=== PATIENT | female | born 1980 | race Caucasian/White ===

== ENCOUNTER 2017-01-17 16:12 | Emergency (ER) | payer MEDICAID ==
[~2017-01-17] VITALS: Ht 157.5 cm; Wt 76.4 kg
[2017-01-17] MEDS ORDERED: METOCLOPRAMIDE HCL 10MG/2ML VIAL IV ONE (23:00)
[2017-01-17] MEDS ORDERED: KETOROLAC 30MG/ML VIAL IV ONE (23:00)
[2017-01-17] MEDS ORDERED: SODIUM CHLORIDE 0.9% 500 ML IV ONE (23:16)
[2017-01-17 23:40] LABS: EOSINOPHILS % 0.9 % (0.0-5.0); HEMATOCRIT. 39.4 % (36.0-48.0); HEMOGLOBIN. 13.3 g/dL (12.0-16.0); LYMPHOCYTES % 27.3 % (20.0-50.0); MEAN CORPUSCULAR HEMOGLOBIN 31.4 pg (28.0-32.0); MEAN CORPUSCULAR VOLUME 93.1 fL (81.0-99.0); MONOCYTES % 11.8 % (2.0-8.0); RED BLOOD CELL COUNT 4.24 mill/uL (4.2-5.4); RED CELL DISTRIBUTION WIDTH 15.2 % (11.6-14.6)
[2017-01-17 23:43] LABS: CHLORIDE 101 mEq/L (98-107)
[2017-01-17 23:53] LABS: CARBON DIOXIDE 26 mEq/L (21-32)
[2017-01-17 23:59] LABS: HCG SCREEN NEGATIVE
[2017-01-18 00:05] LABS: PLATELET 156 x1000/uL (130-400)
[2017-01-18 01:00] LABS: CLARITY URINE CLOUDY (CLEAR); COLOR URINE ORANGE (YELLOW); GLUCOSE URINE NEGATIVE (NEGATIVE); KETONES URINE 4+ (NEGATIVE); LEUKOCYTE ESTERASE URINE TRACE (NEGATIVE); NITRITE URINE NEGATIVE (NEGATIVE); OCCULT BLOOD URINE TRACE (NEGATIVE); PH URINE 5.5 (4.5-8.0); PROTEIN URINE 1+ (NEGATIVE); SPECIFIC GRAVITY URINE 1.034 (1.005-1.030)
[2017-01-18] MEDS ORDERED: HYDROCODONE/APAP 7.5/325MG 1 TAB TABLET PO ONE (02:45)
[2017-01-18 03:20] VITALS: BP 121/69
[2017-01-18] MEDS ORDERED: SODIUM CHLORIDE 0.9% 10ML VIAL ONE (13:50)
[2017-01-18] MEDS ORDERED: IOHEXOL-350 100 ML BOTTLE ONE (13:50)
== END 2017-01-18 03:20 | disposition home or self-care (01) ==
LOC: ER 16:12
DX: R51 Headache (principal); R11.2 Nausea with vomiting, unspecified; Z98.890 Other specified postprocedural states
CPT/HCPCS: 36415; 70496; 80053; 81001; 81025; 84703; 85025; 96361; 96374; 96375; 99285; A4216; J1885; J2765; Q9967; Z7610; J7030

== ENCOUNTER 2018-04-03 06:00 | Emergency (ER) | payer MEDICARE ==
[~2018-04-03] VITALS: Ht 157.5 cm; Wt 85.0 kg
[2018-04-03] MEDS ORDERED: LIDOCAINE HCL/PF 1% 10 MG/ML 5ML VIAL IJ ONE (07:15)
[2018-04-03 08:18] VITALS: BP 126/85
== END 2018-04-03 08:56 | disposition home or self-care (01) ==
LOC: ER 08:51
DX: S01.511A Laceration without foreign body of lip, initial encounter (principal); Z87.891 Personal history of nicotine dependence; Y00.XXXA Assault by blunt object, initial encounter; Y93.89 Activity, other specified; Y92.018 Other place in single-family (private) house as the place of occurrence of the external cause
CPT/HCPCS: 12011; 99283; J3490; X7700

== ENCOUNTER 2019-10-17 12:25 | Inpatient (IN) | payer MEDICARE ==
[~2019-10-17] VITALS: Ht 165.1 cm; Wt 78.7 kg
[2019-10-17] MEDS ORDERED: OMEP20CA14 PO (12:40)
[2019-10-17] MEDS ORDERED: KETOROLAC 30MG/ML VIAL IV STA (13:35)
[2019-10-17] MEDS ORDERED: SODIUM CHLORIDE 0.9% 1,000 ML IV ONE (13:35)
[2019-10-17] MEDS ORDERED: FAMOTIDINE 20MG/2ML VIAL IV STA (13:35)
[2019-10-17] MEDS ORDERED: ONDANSETRON HCL 4MG/2ML INJ IV STA (13:35)
[2019-10-17] MEDS ORDERED: MORPHINE SULFATE 2 MG/ML CPJ (NOT FOR IM USE) IV ONE (13:45)
[2019-10-17 14:42] LABS: BASOPHILS % 1.2 % (0.0-2.0); EOSINOPHILS % 0.1 % (0.0-5.0); HEMATOCRIT. 41.8 % (36.0-48.0); HEMOGLOBIN. 14.2 g/dL (12.0-16.0); LYMPHOCYTES % 19.5 % (20.0-50.0); MEAN CORPUSCULAR HEMOGLOBIN 28.7 pg (28.0-32.0); MEAN CORPUSCULAR VOLUME 84.7 fL (81.0-99.0); MEAN PLATELET VOLUME 14.3 fl (7.4-10.4); MONOCYTES % 11.1 % (2.0-8.0); NEUTROPHILS % 68.1 % (40.0-76.0); PLATELET 157 x1000/uL (130-400); RED BLOOD CELL COUNT 4.93 mill/uL (4.2-5.4); RED CELL DISTRIBUTION WIDTH 14.7 % (11.6-14.6)
[2019-10-17 14:43] LABS: PROTHROMBIN TIME 10.9 sec (9.6-11.0)
[2019-10-17 14:45] LABS: CHLORIDE 103 mEq/L (98-107)
[2019-10-17 14:55] LABS: HCG SCREEN NEGATIVE
[2019-10-17] MEDS ORDERED: MAGNESIUM/ALUMINUM HYDROXIDE/SIMETHICONE 30ML UDC PO ONE (15:00)
[2019-10-17] MEDS ORDERED: IOHEXOL-300 100 ML BOTTLE ONE (15:44)
[2019-10-17 17:32] LABS: CLARITY URINE CLEAR (CLEAR); COLOR URINE YELLOW (YELLOW); KETONES URINE TRACE (NEGATIVE); LEUKOCYTE ESTERASE URINE NEGATIVE (NEGATIVE); NITRITE URINE NEGATIVE (NEGATIVE); OCCULT BLOOD URINE TRACE (NEGATIVE); PH URINE 7.5 (4.5-8.0); PROTEIN URINE 2+ (NEGATIVE); SPECIFIC GRAVITY URINE >1.040 (1.005-1.030); UROBILINOGEN URINE 0.2 E.U./dL (0.2-1.0)
[2019-10-17 17:48] LABS: *AMPHETAMINES SCREEN URINE NEGATIVE (NEGATIVE); *BARBITURATES SCREEN URINE NEGATIVE (NEGATIVE); *BENZODIAZEPINES SCREEN URINE NEGATIVE (NEGATIVE); *COCAINE SCREEN URINE NEGATIVE (NEGATIVE); METHADONE URINE SCREEN NEGATIVE (NEGATIVE)
[2019-10-17 17:49] LABS: PHENCYCLIDINE URINE SCREEN NEGATIVE (NEGATIVE)
[2019-10-17 17:53] LABS: CANNABINOID URINE SCREEN PRESUMTIVE POSITIVE (NEGATIVE); OPIATES URINE SCREEN PRESUMTIVE POSITIVE (NEGATIVE)
[2019-10-17] MEDS ORDERED: MORPHINE SULFATE 4 MG/ML CPJ (NOT FOR IM USE) IV ONE (19:30)
[2019-10-17 22:02] VITALS: BP 124/78
[2019-10-18] VITALS: BP 118/71
[2019-10-18] MEDS ORDERED: TEMAZEPAM 15MG CAPSULE PO PRN
[2019-10-18] MEDS: ONDANSETRON HCL 4MG/2ML INJ IV PRN ×4 (00:27→18:52)
[2019-10-18] MEDS: DEXT 5%/0.45% NACL KCL 20MEQ/L 1,000 ML IV SCH ×2 (01:11→11:47)
[2019-10-18] MEDS: LEVOFLOXACIN 500MG PREMIX 100 ML IV SCH (01:11)
[2019-10-18 04:00] VITALS: BP 118/70
[2019-10-18] MEDS: MORPHINE SULFATE 2 MG/ML CPJ (NOT FOR IM USE) IV PRN ×3 (06:00→19:00)
[2019-10-18 06:11] LABS: BASOPHILS % 1.3 % (0.0-2.0); EOSINOPHILS % 1.7 % (0.0-5.0); HEMATOCRIT. 35.1 % (36.0-48.0); HEMOGLOBIN. 11.8 g/dL (12.0-16.0); LYMPHOCYTES % 37.5 % (20.0-50.0); MEAN CORPUSCULAR HEMOGLOBIN 28.9 pg (28.0-32.0); MEAN CORPUSCULAR VOLUME 85.9 fL (81.0-99.0); MEAN PLATELET VOLUME 11.8 fl (7.4-10.4); MONOCYTES % 9.4 % (2.0-8.0); NEUTROPHILS % 50.1 % (40.0-76.0); PLATELET 129 x1000/uL (130-400); RED BLOOD CELL COUNT 4.09 mill/uL (4.2-5.4); RED CELL DISTRIBUTION WIDTH 14.6 % (11.6-14.6)
[2019-10-18 06:34] LABS: CHLORIDE 107 mEq/L (98-107)
[2019-10-18] MEDS: PANTOPRAZOLE SODIUM 40 MG/VIAL IV SCH (09:44)
[2019-10-18] MEDS ORDERED: POTASSIUM CHLORIDE 20MEQ TABLET SR PO SCH (11:00)
[2019-10-18] MEDS ORDERED: ACETAMINOPHEN 650MG SUPP PR PRN (14:45)
[2019-10-18] MEDS ORDERED: IPRATROPIUM/ALBUTEROL 0.5-3(2.5)MG/3ML NEB HHN PRN (14:45)
[2019-10-18] MEDS ORDERED: MAGNESIUM/ALUMINUM HYDROXIDE/SIMETHICONE 30ML UDC PO PRN (14:45)
[2019-10-18] MEDS ORDERED: DIPHENHYDRAMINE 50MG/ML VIAL IV PRN (14:45)
[2019-10-18] MEDS ORDERED: ACETAMINOPHEN 325MG TABLET PO PRN (14:45)
[2019-10-18] MEDS ORDERED: LACTULOSE 20G/30ML UDC PO PRN (14:45)
[2019-10-18] MEDS ORDERED: LORAZEPAM 2MG/ML CPJ IV PRN (14:45)
[2019-10-18 17:29] LABS: HEMATOCRIT 39.2 % (36.0-48.0)
[2019-10-18 17:38] LABS: T4 FREE 1.11 ng/dL (0.76-1.46)
[2019-10-18 20:00] VITALS: BP 116/70
[2019-10-18 21:54] LABS: HEMATOCRIT 34.8 % (36.0-48.0); HEMOGLOBIN 11.6 g/dL (12.0-16.0)
[2019-10-19] VITALS: BP 120/71
[2019-10-19] MEDS: LEVOFLOXACIN 500MG PREMIX 100 ML IV SCH (01:05)
[2019-10-19] MEDS: DEXT 5%/0.45% NACL KCL 20MEQ/L 1,000 ML IV SCH ×2 (01:46→08:00)
[2019-10-19 04:00] VITALS: BP 115/67
[2019-10-19 07:37] LABS: BASOPHILS % 0.8 % (0.0-2.0); EOSINOPHILS % 2.8 % (0.0-5.0); HEMATOCRIT. 35.9 % (36.0-48.0); HEMOGLOBIN. 11.8 g/dL (12.0-16.0); LYMPHOCYTES % 45.6 % (20.0-50.0); MEAN CORPUSCULAR HEMOGLOBIN 28.6 pg (28.0-32.0); MEAN PLATELET VOLUME 12.4 fl (7.4-10.4); MONOCYTES % 9.1 % (2.0-8.0); NEUTROPHILS % 41.7 % (40.0-76.0); PLATELET 130 x1000/uL (130-400); RED BLOOD CELL COUNT 4.13 mill/uL (4.2-5.4); RED CELL DISTRIBUTION WIDTH 14.4 % (11.6-14.6)
[2019-10-19 07:49] LABS: CHLORIDE 109 mEq/L (98-107)
[2019-10-19 08:00] VITALS: BP_SYST 112; BP_SYST 120; BP_DIAS 68; BP_DIAS 77
[2019-10-19] MEDS: PANTOPRAZOLE SODIUM 40 MG/VIAL IV SCH (08:08)
[2019-10-19 12:00] VITALS: BP 112/70
[2019-10-22 09:10] LABS: SACCHAROMYCES CEREVISIAE IGG <20.0 Units (0.0-24.9); SACCHAROMYCES CEREVISIAE IGM <20.0 Units (0.0-24.9)
[2019-10-22 14:09] LABS: ATYPICAL pANCA <1:20 titer (Neg:<1:20)
== END 2019-10-19 18:12 | disposition home or self-care (01) | DRG 249 ==
LOC: ER 12:25 → 6EST 19:21 → ENRESERV 21:37 → 6EST 23:00
PROVIDERS: ADMIT Internal Medicine; ATTEND Internal Medicine
DX: K52.9 Noninfective gastroenteritis and colitis, unspecified (principal); N28.1 Cyst of kidney, acquired; K21.9 Gastro-esophageal reflux disease without esophagitis; K57.30 Diverticulosis of large intestine without perforation or abscess without bleeding; E87.6 Hypokalemia; E66.9 Obesity, unspecified; D64.9 Anemia, unspecified; K92.1 Melena; K64.4 Residual hemorrhoidal skin tags; F12.90 Cannabis use, unspecified, uncomplicated
CPT/HCPCS: 36415; 71045; 74177; 76705; 80048; 80053; 80061; 80305; 81003; 82728; 83540; 83550; 84145; 84439; 84443; 84703; 85014; 85018; 85025; 85044; 86256; 86671; 99285; C9113; J1885; J1956; J2060; J2270; J2405; J3490; J7030; Q9967

== ENCOUNTER 2019-11-11 19:50 | Emergency (ER) | payer MEDICAID, MEDICARE ==
[~2019-11-11] VITALS: Ht 165.1 cm; Wt 73.0 kg
[~2019-11-11 19:50] MED LIST: OMEP20CA14 PO
[2019-11-11] MEDS ORDERED: ONDANSETRON HCL 4MG/2ML INJ IV STA (21:56)
[2019-11-11] MEDS ORDERED: ONDANSETRON HCL 4MG/2ML INJ ONE (22:01)
[2019-11-11] MEDS ORDERED: FAMOTIDINE 20MG/2ML VIAL IV STA (22:20)
[2019-11-11] MEDS ORDERED: MORPHINE SULFATE 4 MG/ML CPJ (NOT FOR IM USE) IV STA (22:20)
[2019-11-11] MEDS ORDERED: SODIUM CHLORIDE 0.9% 1,000 ML IV ONE (22:20)
[2019-11-11 22:29] LABS: BASOPHILS % 0.4 % (0.0-2.0); HEMATOCRIT. 39.2 % (36.0-48.0); HEMOGLOBIN. 13.1 g/dL (12.0-16.0); LYMPHOCYTES % 8.4 % (20.0-50.0); MEAN CORPUSCULAR HEMOGLOBIN 28.8 pg (28.0-32.0); MEAN CORPUSCULAR VOLUME 86.5 fL (81.0-99.0); MEAN PLATELET VOLUME 12.2 fl (7.4-10.4); MONOCYTES % 3.8 % (2.0-8.0); NEUTROPHILS % 87.4 % (40.0-76.0); PLATELET 134 x1000/uL (130-400); RED BLOOD CELL COUNT 4.53 mill/uL (4.2-5.4)
[2019-11-11 22:38] LABS: CHLORIDE 103 mEq/L (98-107)
[2019-11-11 22:44] LABS: HCG SCREEN NEGATIVE
[2019-11-11] MEDS ORDERED: HALOPERIDOL LACTATE 5MG/ML VIAL IM ONE (23:00)
[2019-11-11] MEDS ORDERED: MORPHINE SULFATE 4 MG/ML CPJ (NOT FOR IM USE) IV ONE (23:00)
[2019-11-12] MEDS ORDERED: METOCLOPRAMIDE HCL 10MG/2ML VIAL IV ONE (00:45)
[2019-11-12 04:50] VITALS: BP 133/78
== END 2019-11-12 05:16 | disposition short-term general hospital (02) ==
LOC: ER 19:50
DX: R10.13 Epigastric pain (principal); R11.2 Nausea with vomiting, unspecified
CPT/HCPCS: 36415; 74177; 80053; 83690; 84703; 85025; 96361; 96372; 96374; 96375; 96376; 99285; J1630; J2270; J2405; J2765; J3490; J7030

== ENCOUNTER 2020-06-16 08:57 | Emergency (ER) | payer MEDICAID, MEDICARE ==
[~2020-06-16] VITALS: Ht 160 cm; Wt 67.5 kg
[2020-06-16] MEDS ORDERED: FAMOTIDINE 20MG/2ML VIAL IV STA (09:37)
[2020-06-16] MEDS ORDERED: MAGNESIUM/ALUMINUM HYDROXIDE/SIMETHICONE 30ML UDC PO STA (09:37)
[2020-06-16] MEDS ORDERED: KETOROLAC 30MG/ML VIAL IV STA (09:37)
[2020-06-16] MEDS ORDERED: ONDANSETRON HCL 4MG/2ML INJ IV ONE ×2 (09:45→12:45)
[2020-06-16] MEDS ORDERED: SODIUM CHLORIDE 0.9% 1,000 ML IV ONE (09:45)
[2020-06-16 09:58] LABS: BASOPHILS % 0.3 % (0.0-2.0); EOSINOPHILS % 0.1 % (0.0-5.0); HEMOGLOBIN. 14.6 g/dL (12.0-16.0); LYMPHOCYTES % 8.8 % (20.0-50.0); MEAN CORPUSCULAR HEMOGLOBIN 29.4 pg (28.0-32.0); MEAN CORPUSCULAR VOLUME 88.3 fL (81.0-99.0); MONOCYTES % 5.1 % (2.0-8.0); NEUTROPHILS % 85.7 % (40.0-76.0); RED BLOOD CELL COUNT 4.98 mill/uL (4.2-5.4); RED CELL DISTRIBUTION WIDTH 14.5 % (11.6-14.6)
[2020-06-16 10:05] LABS: CHLORIDE 101 mEq/L (98-107)
[2020-06-16 10:10] LABS: ETHANOL BLOOD < 10 mg/dL
[2020-06-16 10:12] LABS: HCG SCREEN NEGATIVE
[2020-06-16 10:26] LABS: PLATELET 216 x1000/uL (130-400)
[2020-06-16 12:03] LABS: CLARITY URINE CLOUDY (CLEAR); COLOR URINE YELLOW (YELLOW); KETONES URINE 3+ (NEGATIVE); LEUKOCYTE ESTERASE URINE NEGATIVE (NEGATIVE); NITRITE URINE NEGATIVE (NEGATIVE); OCCULT BLOOD URINE TRACE (NEGATIVE); PROTEIN URINE 1+ (NEGATIVE); SPECIFIC GRAVITY URINE 1.039 (1.005-1.030); UROBILINOGEN URINE 0.2 E.U./dL (0.2-1.0)
[2020-06-16 12:17] LABS: METHADONE URINE SCREEN NEGATIVE (NEGATIVE)
[2020-06-16 12:18] LABS: *AMPHETAMINES SCREEN URINE NEGATIVE (NEGATIVE); *BARBITURATES SCREEN URINE NEGATIVE (NEGATIVE); *BENZODIAZEPINES SCREEN URINE NEGATIVE (NEGATIVE); *COCAINE SCREEN URINE NEGATIVE (NEGATIVE); OPIATES URINE SCREEN NEGATIVE (NEGATIVE); PHENCYCLIDINE URINE SCREEN NEGATIVE (NEGATIVE)
[2020-06-16 12:24] LABS: CANNABINOID URINE SCREEN PRESUMTIVE POSITIVE (NEGATIVE)
[2020-06-16] MEDS ORDERED: CEFTRIAXONE 1 G PREMIX 50 ML IV ONE (12:30)
[2020-06-16] MEDS ORDERED: KETOROLAC 15MG/ML VIAL IV ONE (12:45)
[2020-06-16] MEDS ORDERED: ONDANSETRON HCL 4MG/2ML INJ IV STA (14:08)
[2020-06-16] MEDS ORDERED: MORPHINE SULFATE 4 MG/ML CPJ (NOT FOR IM USE) IV STA (14:08)
[2020-06-16 18:02] VITALS: BP 102/51
== END 2020-06-16 19:56 | disposition short-term general hospital (02) ==
LOC: ER 09:07 → CANBEDREQ 06-17 20:34
DX: N39.0 Urinary tract infection, site not specified (principal); F12.188 Cannabis abuse with other cannabis-induced disorder; K21.9 Gastro-esophageal reflux disease without esophagitis
CPT/HCPCS: 36415; 71045; 74176; 76705; 80053; 80305; 80320; 81003; 81025; 83690; 84703; 85025; 93005; 96361; 96365; 96375; 96376; 99285; J0696; J1885; J2270; J2405; J3490; J7030; G0480

== ENCOUNTER 2020-07-26 22:38 | Emergency (ER) | payer MEDICAID ==
[~2020-07-26] VITALS: Ht 167.6 cm; Wt 59.0 kg
[2020-07-26 23:03] VITALS: BP 134/70
[2020-07-26] MEDS ORDERED: VISCOUS LIDOCAINE 2% 15 ML UDC MM STA (23:56)
[2020-07-27] MEDS ORDERED: HALOPERIDOL LACTATE 5MG/ML VIAL IM ONE
[2020-07-27] MEDS ORDERED: ONDANSETRON 4MG ODT PO ONE
[2020-07-27] MEDS ORDERED: MAGNESIUM/ALUMINUM HYDROXIDE/SIMETHICONE 30ML UDC PO ONE
== END 2020-07-27 00:39 | disposition home or self-care (01) ==
LOC: ER 22:38
DX: R11.15 Cyclical vomiting syndrome unrelated to migraine (principal); F12.10 Cannabis abuse, uncomplicated; Z98.890 Other specified postprocedural states
CPT/HCPCS: 96372; 99283; J1630; Q0162

== ENCOUNTER 2020-07-30 02:55 | Emergency (ER) | payer MEDICAID ==
[~2020-07-30] VITALS: Ht 160 cm; Wt 64.0 kg
[2020-07-30] MEDS ORDERED: ONDANSETRON HCL 4MG/2ML INJ IV STA (08:29)
[2020-07-30] MEDS ORDERED: SODIUM CHLORIDE 0.9% 1,000 ML IV ONE (08:30)
[2020-07-30] MEDS ORDERED: MORPHINE SULFATE 4 MG/ML CPJ (NOT FOR IM USE) IV ONE ×2 (08:45→12:15)
[2020-07-30 08:49] LABS: BASOPHILS % 1.1 % (0.0-2.0); HEMATOCRIT. 38.1 % (36.0-48.0); HEMOGLOBIN. 12.5 g/dL (12.0-16.0); LYMPHOCYTES % 7.3 % (20.0-50.0); MEAN CORPUSCULAR HEMOGLOBIN 28.4 pg (28.0-32.0); MEAN CORPUSCULAR VOLUME 86.2 fL (81.0-99.0); MEAN PLATELET VOLUME 12.1 fl (7.4-10.4); MONOCYTES % 3.5 % (2.0-8.0); NEUTROPHILS % 88.1 % (40.0-76.0); PLATELET 174 x1000/uL (130-400); RED BLOOD CELL COUNT 4.41 mill/uL (4.2-5.4); RED CELL DISTRIBUTION WIDTH 14.7 % (11.6-14.6)
[2020-07-30 08:55] LABS: CHLORIDE 102 mEq/L (98-107)
[2020-07-30 08:59] LABS: PROTHROMBIN TIME 10.6 sec (9.6-11.0)
[2020-07-30 09:26] LABS: HCG SCREEN NEGATIVE
[2020-07-30] MEDS ORDERED: ACETAMINOPHEN 325MG TABLET PO ONE (10:15)
[2020-07-30] MEDS ORDERED: POTASSIUM CHLORIDE 10MEQ TABLET SR PO ONE (10:30)
[2020-07-30 12:34] LABS: CLARITY URINE CLOUDY (CLEAR); COLOR URINE YELLOW (YELLOW); KETONES URINE 3+ (NEGATIVE); LEUKOCYTE ESTERASE URINE NEGATIVE (NEGATIVE); NITRITE URINE NEGATIVE (NEGATIVE); OCCULT BLOOD URINE 2+ (NEGATIVE); PH URINE 6.5 (4.5-8.0); PROTEIN URINE 1+ (NEGATIVE); SPECIFIC GRAVITY URINE 1.032 (1.005-1.030)
[2020-07-30 13:07] LABS: *AMPHETAMINES SCREEN URINE NEGATIVE (NEGATIVE); *BARBITURATES SCREEN URINE NEGATIVE (NEGATIVE)
[2020-07-30 13:08] LABS: *BENZODIAZEPINES SCREEN URINE NEGATIVE (NEGATIVE); *COCAINE SCREEN URINE NEGATIVE (NEGATIVE); METHADONE URINE SCREEN NEGATIVE (NEGATIVE); OPIATES URINE SCREEN NEGATIVE (NEGATIVE); PHENCYCLIDINE URINE SCREEN NEGATIVE (NEGATIVE)
[2020-07-30 13:55] LABS: CANNABINOID URINE SCREEN PRESUMTIVE POSITIVE (NEGATIVE)
[2020-07-30] MEDS ORDERED: ONDANSETRON HCL 4MG/2ML INJ IV NR (14:34)
[2020-07-30] MEDS ORDERED: VISCOUS LIDOCAINE 2% 15 ML UDC MM PRN (16:15)
[2020-07-30] MEDS ORDERED: MAGNESIUM/ALUMINUM HYDROXIDE/SIMETHICONE 30ML UDC PO ONE (16:15)
[2020-07-30] MEDS ORDERED: DICYCLOMINE HCL 10MG CAPSULE PO ONE (16:30)
[2020-07-30 17:12] VITALS: BP 130/86
== END 2020-07-30 17:15 | disposition home or self-care (01) ==
LOC: ER 02:55
DX: R10.2 Pelvic and perineal pain (principal); G89.29 Other chronic pain; R11.15 Cyclical vomiting syndrome unrelated to migraine; F12.10 Cannabis abuse, uncomplicated
CPT/HCPCS: 36415; 76830; 76856; 80053; 80305; 81003; 83605; 83690; 84703; 85025; 85610; 87086; 96361; 96374; 99284; J2270; J2405; J7030; Z7610

== ENCOUNTER 2020-08-24 23:03 | Emergency (ER) | payer MEDICAID, OTHER ==
[~2020-08-24] VITALS: Ht 160 cm; Wt 64.0 kg
[2020-08-24 23:51] VITALS: BP 144/84
[2020-08-24] MEDS ORDERED: MAGNESIUM/ALUMINUM HYDROXIDE/SIMETHICONE 30ML UDC PO STA (23:54)
[2020-08-24] MEDS ORDERED: ONDANSETRON 4MG ODT PO STA (23:54)
[2020-08-25] MEDS ORDERED: VISCOUS LIDOCAINE 2% 15 ML UDC MM ONE
== END 2020-08-25 01:08 | disposition home or self-care (01) ==
LOC: ER 23:03
DX: R11.15 Cyclical vomiting syndrome unrelated to migraine (principal); F17.210 Nicotine dependence, cigarettes, uncomplicated
CPT/HCPCS: 81025; 93005; 99284; Q0162

== ENCOUNTER 2020-11-04 13:22 | Emergency (ER) | payer MEDICAID, OTHER ==
[~2020-11-04] VITALS: Ht 160 cm; Wt 70.0 kg
[2020-11-04] MEDS ORDERED: IBUPROFEN 600MG TABLET PO ONE (14:00)
[2020-11-04] MEDS ORDERED: IBUP-2029 MT (14:55)
[2020-11-04 15:18] VITALS: BP 144/97
== END 2020-11-04 15:20 | disposition home or self-care (01) ==
LOC: ER 13:22
DX: S90.32XA Contusion of left foot, initial encounter (principal); V09.9XXA Pedestrian injured in unspecified transport accident, initial encounter; Y93.89 Activity, other specified; Y92.89 Other specified places as the place of occurrence of the external cause; Y99.8 Other external cause status
CPT/HCPCS: 73630; 99283

== ENCOUNTER 2020-12-10 07:08 | Inpatient (IN) | payer MEDICAID, OTHER ==
[~2020-12-10] VITALS: Ht 160 cm; Wt 69.4 kg
[~2020-12-10 07:08] MED LIST changes: +IBUP-2029 MT
[2020-12-10] MEDS ORDERED: DICYCLOMINE 10 MG/5 ML ORAL SYR PO STA (07:38)
[2020-12-10] MEDS ORDERED: VISCOUS LIDOCAINE 2% 15 ML UDC PO STA (07:38)
[2020-12-10] MEDS ORDERED: ONDANSETRON HCL 4MG/2ML INJ IV STA (07:38)
[2020-12-10] MEDS ORDERED: MAGNESIUM/ALUMINUM HYDROXIDE/SIMETHICONE 30ML UDC PO STA (07:38)
[2020-12-10] MEDS ORDERED: MORPHINE SULFATE 4 MG/ML CPJ (NOT FOR IM USE) IV STA (07:38)
[2020-12-10] MEDS ORDERED: SODIUM CHLORIDE 0.9% 1,000 ML IV ONE (07:45)
[2020-12-10 07:50] LABS: HEMATOCRIT. 35.5 % (36.0-48.0); HEMOGLOBIN. 11.7 g/dL (12.0-16.0); MEAN CORPUSCULAR HEMOGLOBIN 27.6 pg (28.0-32.0); MEAN CORPUSCULAR VOLUME 83.5 fL (81.0-99.0); PLATELET 147 x1000/uL (130-400); RED BLOOD CELL COUNT 4.25 mill/uL (4.2-5.4); RED CELL DISTRIBUTION WIDTH 15.8 % (11.6-14.6)
[2020-12-10 07:58] LABS: CHLORIDE 106 mEq/L (98-107)
[2020-12-10 08:02] LABS: PROTHROMBIN TIME 10.5 sec (9.6-11.0)
[2020-12-10 08:03] LABS: HCG SCREEN NEGATIVE
[2020-12-10 10:07] LABS: PLATELET ESTIMATE NORMAL
[2020-12-10] MEDS ORDERED: ONDANSETRON HCL 4MG/2ML INJ IV ONE (10:15)
[2020-12-10] MEDS ORDERED: MORPHINE SULFATE 4 MG/ML CPJ (NOT FOR IM USE) IV ONE (10:15)
[2020-12-10 11:26] LABS: CLARITY URINE CLEAR (CLEAR); COLOR URINE YELLOW (YELLOW); KETONES URINE TRACE (NEGATIVE); LEUKOCYTE ESTERASE URINE NEGATIVE (NEGATIVE); NITRITE URINE NEGATIVE (NEGATIVE); OCCULT BLOOD URINE NEGATIVE (NEGATIVE); PROTEIN URINE NEGATIVE (NEGATIVE); SPECIFIC GRAVITY URINE 1.027 (1.005-1.030); UROBILINOGEN URINE 0.2 E.U./dL (0.2-1.0)
[2020-12-10] MEDS: MORPHINE SULFATE 2 MG/ML CPJ (NOT FOR IM USE) IV PRN ×2 (13:20→22:27)
[2020-12-10 15:00] VITALS: BP 116/76
[2020-12-10] MEDS ORDERED: DIPH25TA23 MT (16:19)
[2020-12-10] MEDS ORDERED: OMEP40CA12 PO (16:19)
[2020-12-10] MEDS ORDERED: ABIL10 PO (16:19)
[2020-12-10] MEDS ORDERED: CITA20TA19 MT (16:19)
[2020-12-10] MEDS ORDERED: AMIT10TA6 PO (16:19)
[2020-12-10] MEDS ORDERED: ONDA4TAB5 PO (16:19)
[2020-12-10] MEDS ORDERED: BENJ IM (16:19)
[2020-12-10] MEDS ORDERED: ACETAMINOPHEN 325MG TABLET PO PRN (17:30)
[2020-12-10] MEDS ORDERED: IPRATROPIUM/ALBUTEROL 0.5-3(2.5)MG/3ML NEB HHN PRN (17:30)
[2020-12-10] MEDS ORDERED: DOCUSATE SODIUM 100MG CAPSULE PO PRN (17:30)
[2020-12-10] MEDS ORDERED: CLONIDINE 0.1MG TABLET PO PRN (17:30)
[2020-12-10] MEDS: SODIUM CHLORIDE 0.9% 1,000 ML IV SCH (17:30)
[2020-12-10] MEDS ORDERED: MAGNESIUM/ALUMINUM HYDROXIDE/SIMETHICONE 30ML UDC PO PRN (17:30)
[2020-12-10] MEDS ORDERED: DICYCLOMINE HCL 10MG/ML 2ML AMP IM SCH (18:00)
[2020-12-10] MEDS: PANTOPRAZOLE SODIUM 40 MG/VIAL IV SCH (18:15)
[2020-12-10 19:43] LABS: PHENCYCLIDINE URINE SCREEN NEGATIVE (NEGATIVE)
[2020-12-10 19:44] LABS: *AMPHETAMINES SCREEN URINE NEGATIVE (NEGATIVE); *BARBITURATES SCREEN URINE NEGATIVE (NEGATIVE); *BENZODIAZEPINES SCREEN URINE NEGATIVE (NEGATIVE); *COCAINE SCREEN URINE NEGATIVE (NEGATIVE); METHADONE URINE SCREEN NEGATIVE (NEGATIVE)
[2020-12-10 19:48] LABS: CANNABINOID URINE SCREEN PRESUMTIVE POSITIVE (NEGATIVE); OPIATES URINE SCREEN PRESUMTIVE POSITIVE (NEGATIVE)
[2020-12-10 20:00] VITALS: BP 114/52
[2020-12-10] MEDS: AMITRIPTYLINE 10MG TABLET PO SCH ×2 (21:37→21:54)
[2020-12-10] MEDS: PROCHLORPERAZINE 10MG/2ML VIAL IV PRN (21:45)
[2020-12-10] MEDS: ENOXAPARIN 40MG/0.4ML SYR SUBCUT SCH (21:45)
[2020-12-11] VITALS: BP 105/58
[2020-12-11 04:00] VITALS: BP 127/77
[2020-12-11] MEDS: MORPHINE SULFATE 2 MG/ML CPJ (NOT FOR IM USE) IV PRN ×3 (04:42→22:40)
[2020-12-11] MEDS: PROCHLORPERAZINE 10MG/2ML VIAL IV PRN (05:15)
[2020-12-11 07:15] LABS: BASOPHILS % 1.1 % (0.0-2.0); EOSINOPHILS % 1.4 % (0.0-5.0); HEMATOCRIT. 36.1 % (36.0-48.0); HEMOGLOBIN. 11.8 g/dL (12.0-16.0); LYMPHOCYTES % 45.5 % (20.0-50.0); MEAN CORPUSCULAR HEMOGLOBIN 27.4 pg (28.0-32.0); MEAN CORPUSCULAR VOLUME 83.8 fL (81.0-99.0); MONOCYTES % 8.8 % (2.0-8.0); NEUTROPHILS % 43.2 % (40.0-76.0); PLATELET 120 x1000/uL (130-400); RED CELL DISTRIBUTION WIDTH 16.2 % (11.6-14.6)
[2020-12-11 07:23] LABS: CHLORIDE 109 mEq/L (98-107)
[2020-12-11 07:31] LABS: PHOSPHORUS 2.3 mg/dL (2.5-4.9)
[2020-12-11 08:00] VITALS: BP 137/74
[2020-12-11] MEDS: ARIPIPRAZOLE 5MG TABLET PO SCH (09:39)
[2020-12-11] MEDS: PANTOPRAZOLE SODIUM 40 MG/VIAL IV SCH (09:39)
[2020-12-11] MEDS: SODIUM CHLORIDE 0.9% 1,000 ML IV SCH (09:49)
[2020-12-11] MEDS: CITALOPRAM HYDROBROMIDE 10MG TABLET PO SCH (09:49)
[2020-12-11] MEDS: POTASSIUM CHLORIDE INJ 40 MEQ in DEXT 5% WATER 500 ML IV NR ×3 (10:47→22:22)
[2020-12-11 12:00] VITALS: BP 128/82
[2020-12-11] MEDS ORDERED: DICYCLOMINE HCL 10MG/ML 2ML AMP IM NR (15:00)
[2020-12-11 16:00] VITALS: BP 144/80
[2020-12-11 20:00] VITALS: BP 147/84
[2020-12-11] MEDS ORDERED: POTASSIUM CHLORIDE INJ 40 MEQ in DEXT 5% WATER 500 ML IV SCH (20:00)
[2020-12-11] MEDS: ENOXAPARIN 40MG/0.4ML SYR SUBCUT SCH (22:23)
[2020-12-11] MEDS: ONDANSETRON HCL 4MG/2ML INJ IV PRN (22:27)
[2020-12-12] VITALS: BP 107/55
[2020-12-12] MEDS: SODIUM CHLORIDE 0.9% 1,000 ML IV SCH ×2 (03:58→21:00)
[2020-12-12] MEDS: MORPHINE SULFATE 2 MG/ML CPJ (NOT FOR IM USE) IV PRN ×3 (03:59→17:17)
[2020-12-12 04:00] VITALS: BP 144/81
[2020-12-12] MEDS: ONDANSETRON HCL 4MG/2ML INJ IV PRN ×3 (04:07→17:17)
[2020-12-12 06:04] LABS: CHLORIDE 103 mEq/L (98-107)
[2020-12-12 06:15] LABS: BASOPHILS % 0.8 % (0.0-2.0); EOSINOPHILS % 0.1 % (0.0-5.0); HEMATOCRIT. 36.1 % (36.0-48.0); LYMPHOCYTES % 25.5 % (20.0-50.0); MEAN CORPUSCULAR HEMOGLOBIN 27.7 pg (28.0-32.0); MEAN CORPUSCULAR VOLUME 83.2 fL (81.0-99.0); MEAN PLATELET VOLUME 13.4 fl (7.4-10.4); MONOCYTES % 8.4 % (2.0-8.0); NEUTROPHILS % 65.2 % (40.0-76.0); PLATELET 122 x1000/uL (130-400); RED BLOOD CELL COUNT 4.34 mill/uL (4.2-5.4); RED CELL DISTRIBUTION WIDTH 15.8 % (11.6-14.6)
[2020-12-12 08:00] VITALS: BP 141/82
[2020-12-12] MEDS: CITALOPRAM HYDROBROMIDE 10MG TABLET PO SCH (08:50)
[2020-12-12] MEDS: ARIPIPRAZOLE 5MG TABLET PO SCH (08:51)
[2020-12-12] MEDS: PANTOPRAZOLE SODIUM 40 MG/VIAL IV SCH (10:03)
[2020-12-12 12:00] VITALS: BP 116/71
[2020-12-12 16:00] VITALS: BP 154/89
[2020-12-12] MEDS: SUCRALFATE 1G TABLET PO SCH ×2 (18:12→20:59)
[2020-12-12 20:00] VITALS: BP 134/83
[2020-12-12] MEDS: ENOXAPARIN 40MG/0.4ML SYR SUBCUT SCH (20:58)
[2020-12-12] MEDS: AMITRIPTYLINE 10MG TABLET PO SCH (20:59)
[2020-12-12] MEDS: HYDROCODONE/ACETAMINOPHEN 10/325MG TABLET PO PRN (20:59)
[2020-12-12] MEDS: PROCHLORPERAZINE 10MG/2ML VIAL IV PRN (21:51)
[2020-12-13] VITALS: BP 102/54
[2020-12-13 04:00] VITALS: BP 130/85
[2020-12-13] MEDS: ONDANSETRON HCL 4MG/2ML INJ IV PRN (06:09)
[2020-12-13] MEDS: SUCRALFATE 1G TABLET PO SCH ×2 (06:26→11:18)
[2020-12-13 07:16] LABS: BASOPHILS % 0.6 % (0.0-2.0); CHLORIDE 101 mEq/L (98-107); EOSINOPHILS % 0.5 % (0.0-5.0); HEMOGLOBIN. 12.5 g/dL (12.0-16.0); LYMPHOCYTES % 19.9 % (20.0-50.0); MEAN CORPUSCULAR HEMOGLOBIN 28.2 pg (28.0-32.0); MEAN CORPUSCULAR VOLUME 83.3 fL (81.0-99.0); MEAN PLATELET VOLUME 12.2 fl (7.4-10.4); MONOCYTES % 9.9 % (2.0-8.0); NEUTROPHILS % 69.1 % (40.0-76.0); PLATELET 118 x1000/uL (130-400); RED BLOOD CELL COUNT 4.44 mill/uL (4.2-5.4)
[2020-12-13 08:00] VITALS: BP 148/84
[2020-12-13] MEDS: PANTOPRAZOLE SODIUM 40 MG/VIAL IV SCH (09:18)
[2020-12-13] MEDS: CITALOPRAM HYDROBROMIDE 10MG TABLET PO SCH (09:19)
[2020-12-13] MEDS: ARIPIPRAZOLE 5MG TABLET PO SCH (09:19)
[2020-12-13] MEDS: PROCHLORPERAZINE 10MG/2ML VIAL IV PRN (10:00)
[2020-12-13] MEDS: HYDROCODONE/ACETAMINOPHEN 10/325MG TABLET PO PRN (10:00)
[2020-12-13] MEDS ORDERED: POTASSIUM CHLORIDE 20MEQ/PACKET PO NR ×2 (11:00→14:00)
[2020-12-13 12:00] VITALS: BP 143/68
[2020-12-13] MEDS: SODIUM CHLORIDE 0.9% 1,000 ML IV SCH (12:10)
[2020-12-13 15:30] VITALS: BP 143/68
== END 2020-12-13 16:00 | disposition home or self-care (01) | DRG 244 ==
LOC: ER 07:08 → 6EST 11:17 → ENRESERV 13:12
PROVIDERS: ADMIT Internal Medicine; ATTEND Internal Medicine
DX: K57.90 Diverticulosis of intestine, part unspecified, without perforation or abscess without bleeding (principal); D64.9 Anemia, unspecified; R73.9 Hyperglycemia, unspecified
CPT/HCPCS: 36415; 74176; 80048; 80053; 80076; 80305; 81003; 83735; 84100; 84703; 85025; 93005; 93970; 99285; C9113; J0500; J0780; J1650; J2270; J2405; J3480; J7030; J7060

== ENCOUNTER 2020-12-14 05:08 | Emergency (ER) | payer MEDICAID ==
[~2020-12-14] VITALS: Ht 160 cm; Wt 70.0 kg
[~2020-12-14 05:08] MED LIST changes: +ABIL10 PO; +AMIT10TA6 PO; +BENJ IM; +CITA20TA19 MT; +DIPH25TA23 MT; -OMEP20CA14 PO; +OMEP40CA12 PO; +ONDA4TAB5 PO
[2020-12-14 05:22] VITALS: BP 173/121
== END 2020-12-14 08:24 | disposition left against medical advice (07) ==
LOC: ER 05:08
DX: R10.9 Unspecified abdominal pain (principal); R11.2 Nausea with vomiting, unspecified; Z53.21 Procedure and treatment not carried out due to patient leaving prior to being seen by health care provider
CPT/HCPCS: 93005; 99283

== ENCOUNTER 2021-07-05 09:35 | Emergency (ER) | payer MEDICAID ==
[~2021-07-05] VITALS: Ht 160 cm; Wt 70.0 kg
[~2021-07-05 09:35] MED LIST changes: -OMEP40CA12 PO; +OMEP40CA20 PO
[2021-07-05] MEDS ORDERED: VISCOUS LIDOCAINE 2% 15 ML UDC PO STA (10:40)
[2021-07-05] MEDS ORDERED: ONDANSETRON HCL 4MG/2ML INJ IV STA (10:40)
[2021-07-05] MEDS ORDERED: KETOROLAC 30MG/ML VIAL IV STA (10:40)
[2021-07-05] MEDS ORDERED: MAGNESIUM/ALUMINUM HYDROXIDE/SIMETHICONE 30ML UDC PO STA (10:40)
[2021-07-05] MEDS ORDERED: DICYCLOMINE 10 MG/5 ML ORAL SYR PO STA (10:40)
[2021-07-05] MEDS ORDERED: SODIUM CHLORIDE 0.9% 1,000 ML IV ONE (10:45)
[2021-07-05 10:46] LABS: BASOPHILS % 0.3 % (0.0-2.0); EOSINOPHILS % 0.2 % (0.0-5.0); HEMOGLOBIN. 8.6 g/dL (12.0-16.0); LYMPHOCYTES % 8.3 % (20.0-50.0); MEAN CORPUSCULAR HEMOGLOBIN 22.4 pg (28.0-32.0); MEAN CORPUSCULAR VOLUME 70.5 fL (81.0-99.0); MEAN PLATELET VOLUME 10.5 fl (7.4-10.4); MONOCYTES % 3.3 % (2.0-8.0); NEUTROPHILS % 87.9 % (40.0-76.0); PLATELET 229 x1000/uL (130-400); RED BLOOD CELL COUNT 3.83 mill/uL (4.2-5.4); RED CELL DISTRIBUTION WIDTH 22.8 % (11.6-14.6)
[2021-07-05 10:58] LABS: CHLORIDE 106 mEq/L (98-107)
[2021-07-05 11:02] LABS: ETHANOL BLOOD < 10 mg/dL
[2021-07-05 11:06] LABS: HCG SCREEN NEGATIVE
[2021-07-05 12:13] LABS: PLATELET ESTIMATE NORMAL
[2021-07-05] MEDS ORDERED: METOCLOPRAMIDE HCL 10MG/2ML VIAL IV ONE (12:45)
[2021-07-05] MEDS ORDERED: LORAZEPAM 2MG/ML CPJ IV ONE (12:45)
[2021-07-05] MEDS ORDERED: ONDANSETRON HCL 4MG/2ML INJ IV ONE (14:15)
[2021-07-05] MEDS ORDERED: OMEP40CA20 MT (14:15)
[2021-07-05] MEDS ORDERED: ONDA4TAB5 MT (14:15)
[2021-07-05 16:21] VITALS: BP 130/70
== END 2021-07-05 16:22 | disposition home or self-care (01) ==
LOC: ER 09:35
DX: R10.33 Periumbilical pain (principal); R11.2 Nausea with vomiting, unspecified; Z79.899 Other long term (current) drug therapy
CPT/HCPCS: 36415; 74176; 80053; 80320; 83690; 84703; 85025; 93005; 96361; 96374; 96375; 96376; 99285; J1885; J2060; J2405; J2765; J7030; G0480

== ENCOUNTER 2021-07-07 09:03 | Inpatient (IN) | payer MEDICAID ==
[~2021-07-07] VITALS: Ht 152.4 cm; Wt 68.0 kg
[~2021-07-07 09:03] MED LIST changes: +OMEP40CA20 MT; +ONDA4TAB5 MT
[2021-07-07] MEDS ORDERED: ONDANSETRON HCL 4MG/2ML INJ IV STA (09:22)
[2021-07-07] MEDS ORDERED: MORPHINE SULFATE 4 MG/ML CPJ (NOT FOR IM USE) IV STA (09:22)
[2021-07-07] MEDS ORDERED: SODIUM CHLORIDE 0.9% 1,000 ML IV ONE ×2 (09:30→14:00)
[2021-07-07 10:30] LABS: BASOPHILS % 1.3 % (0.0-2.0); HEMATOCRIT. 27.8 % (36.0-48.0); HEMOGLOBIN. 8.7 g/dL (12.0-16.0); LYMPHOCYTES % 19.1 % (20.0-50.0); MEAN CORPUSCULAR HEMOGLOBIN 21.7 pg (28.0-32.0); MEAN CORPUSCULAR VOLUME 68.9 fL (81.0-99.0); MEAN PLATELET VOLUME 10.9 fl (7.4-10.4); NEUTROPHILS % 72.6 % (40.0-76.0); PLATELET 203 x1000/uL (130-400); RED BLOOD CELL COUNT 4.03 mill/uL (4.2-5.4); RED CELL DISTRIBUTION WIDTH 21.8 % (11.6-14.6)
[2021-07-07 10:39] LABS: CHLORIDE 101 mEq/L (98-107)
[2021-07-07 10:46] LABS: ETHANOL BLOOD < 10 mg/dL
[2021-07-07 12:11] LABS: HCG SCREEN NEGATIVE
[2021-07-07] MEDS ORDERED: VISCOUS LIDOCAINE 2% 15 ML UDC MM STA (13:04)
[2021-07-07 13:10] LABS: CLARITY URINE CLEAR (CLEAR); COLOR URINE YELLOW (YELLOW); KETONES URINE 4+ (NEGATIVE); LEUKOCYTE ESTERASE URINE NEGATIVE (NEGATIVE); NITRITE URINE NEGATIVE (NEGATIVE); OCCULT BLOOD URINE 2+ (NEGATIVE); PH URINE 6.5 (4.5-8.0); PROTEIN URINE TRACE (NEGATIVE); SPECIFIC GRAVITY URINE 1.023 (1.005-1.030)
[2021-07-07] MEDS ORDERED: MAGNESIUM/ALUMINUM HYDROXIDE/SIMETHICONE 30ML UDC PO ONE (13:15)
[2021-07-07 13:18] LABS: *BARBITURATES SCREEN URINE NEGATIVE (NEGATIVE); *COCAINE SCREEN URINE NEGATIVE (NEGATIVE); METHADONE URINE SCREEN NEGATIVE (NEGATIVE)
[2021-07-07 13:19] LABS: *AMPHETAMINES SCREEN URINE NEGATIVE (NEGATIVE); PHENCYCLIDINE URINE SCREEN NEGATIVE (NEGATIVE)
[2021-07-07 13:22] LABS: *BENZODIAZEPINES SCREEN URINE NEGATIVE (NEGATIVE)
[2021-07-07 13:27] LABS: CANNABINOID URINE SCREEN PRESUMTIVE POSITIVE (NEGATIVE); OPIATES URINE SCREEN PRESUMTIVE POSITIVE (NEGATIVE)
[2021-07-07] MEDS ORDERED: ONDA4TAB11 PO (13:53)
[2021-07-07] MEDS ORDERED: LORAZEPAM 2MG/ML CPJ IV ONE (14:00)
[2021-07-07] MEDS ORDERED: METOCLOPRAMIDE HCL 10MG/2ML VIAL IV ONE (14:00)
[2021-07-07 14:30] LABS: PLATELET ESTIMATE NORMAL
[2021-07-07] MEDS ORDERED: IPRATROPIUM/ALBUTEROL 0.5-3(2.5)MG/3ML NEB NEB PRN (23:45)
[2021-07-07] MEDS ORDERED: MAGNESIUM/ALUMINUM HYDROXIDE/SIMETHICONE 30ML UDC PO PRN (23:45)
[2021-07-07] MEDS ORDERED: ACETAMINOPHEN 325MG TABLET PO PRN (23:45)
[2021-07-07] MEDS ORDERED: CLONIDINE 0.1MG TABLET PO PRN (23:45)
[2021-07-07] MEDS ORDERED: DOCUSATE SODIUM 100MG CAPSULE PO PRN (23:45)
[2021-07-08] MEDS: SODIUM CHLORIDE 0.9% 1,000 ML IV SCH ×2 (00:05→12:12)
[2021-07-08] MEDS: ONDANSETRON HCL 4MG/2ML INJ IV PRN (00:12)
[2021-07-08] MEDS: HYDROCODONE/ACETAMINOPHEN 5/325MG TABLET PO PRN ×3 (00:28→12:14)
[2021-07-08 07:35] LABS: EOSINOPHILS % 0.3 % (0.0-5.0); HEMATOCRIT. 25.3 % (36.0-48.0); HEMOGLOBIN. 8.1 g/dL (12.0-16.0); LYMPHOCYTES % 32.3 % (20.0-50.0); MEAN CORPUSCULAR HEMOGLOBIN 22.2 pg (28.0-32.0); MEAN CORPUSCULAR VOLUME 68.9 fL (81.0-99.0); MEAN PLATELET VOLUME 11.5 fl (7.4-10.4); MONOCYTES % 11.8 % (2.0-8.0); NEUTROPHILS % 54.6 % (40.0-76.0); PLATELET 193 x1000/uL (130-400); RED BLOOD CELL COUNT 3.67 mill/uL (4.2-5.4); RED CELL DISTRIBUTION WIDTH 21.5 % (11.6-14.6)
[2021-07-08 07:46] LABS: CHLORIDE 102 mEq/L (98-107)
[2021-07-08 07:53] LABS: LDL CHOLESTEROL 48 mg/dL (5-100)
[2021-07-08 07:54] LABS: CREATINE KINASE 54 IU/L (26-192); HDL CHOLESTEROL 52 mg/dL (40-59)
[2021-07-08 07:57] LABS: CREATINE KINASE MB FRACTION < 1.0 ng/mL (0.5-3.6)
[2021-07-08] MEDS ORDERED: POTASSIUM CHLORIDE 20MEQ TABLET SR PO ONE (09:45)
[2021-07-08] MEDS ORDERED: KCL 20MEQ/100ML PREMIX 100 ML IV ONE (10:00)
[2021-07-08] MEDS: ENOXAPARIN 40MG/0.4ML SYR SUBCUT SCH (10:25)
[2021-07-08 10:36] VITALS: BP 143/84
[2021-07-08 12:00] VITALS: BP 139/72
[2021-07-08] MEDS: CITALOPRAM HYDROBROMIDE 10MG TABLET PO SCH (12:45)
[2021-07-08] MEDS: OMEPRAZOLE 20MG CAPSULE EXTENDED RELEASE PO SCH (12:45)
[2021-07-08] MEDS: ARIPIPRAZOLE 5MG TABLET PO SCH (12:45)
[2021-07-08] MEDS: METOCLOPRAMIDE HCL 10MG/2ML VIAL IV SCH ×2 (13:00→18:33)
[2021-07-08 16:00] VITALS: BP 143/82
[2021-07-08] MEDS: AMITRIPTYLINE 10MG TABLET PO SCH (16:02)
[2021-07-08 16:57] LABS: CREATINE KINASE 52 IU/L (26-192)
[2021-07-08 16:58] LABS: CREATINE KINASE MB FRACTION < 1.0 ng/mL (0.5-3.6)
[2021-07-08 20:00] VITALS: BP 124/60
[2021-07-09] VITALS: BP 127/64
[2021-07-09] MEDS: SODIUM CHLORIDE 0.9% 1,000 ML IV SCH ×3 (00:04→23:59)
[2021-07-09] MEDS: METOCLOPRAMIDE HCL 10MG/2ML VIAL IV SCH ×5 (00:04→23:57)
[2021-07-09] MEDS: ONDANSETRON HCL 4MG/2ML INJ IV PRN (00:22)
[2021-07-09 04:00] VITALS: BP 167/68
[2021-07-09] MEDS ORDERED: NALOXONE HCL 0.4MG/ML VIAL IV PRN (06:15)
[2021-07-09] MEDS: MORPHINE SULFATE 2 MG/ML CPJ (NOT FOR IM USE) IV PRN ×3 (06:16→19:52)
[2021-07-09 07:36] LABS: BASOPHILS % 0.6 % (0.0-2.0); EOSINOPHILS % 0.2 % (0.0-5.0); HEMATOCRIT. 26.9 % (36.0-48.0); HEMOGLOBIN. 8.5 g/dL (12.0-16.0); LYMPHOCYTES % 29.1 % (20.0-50.0); MEAN CORPUSCULAR HEMOGLOBIN 21.3 pg (28.0-32.0); MEAN CORPUSCULAR VOLUME 67.7 fL (81.0-99.0); MEAN PLATELET VOLUME 12.2 fl (7.4-10.4); MONOCYTES % 14.4 % (2.0-8.0); NEUTROPHILS % 55.7 % (40.0-76.0); PLATELET 200 x1000/uL (130-400); RED BLOOD CELL COUNT 3.98 mill/uL (4.2-5.4); RED CELL DISTRIBUTION WIDTH 21.5 % (11.6-14.6)
[2021-07-09 07:59] LABS: FOLIC ACID (FOLATE) SERUM 17.6 ng/mL (>5.38)
[2021-07-09 08:00] VITALS: BP 145/74
[2021-07-09 08:09] LABS: CHLORIDE 102 mEq/L (98-107)
[2021-07-09 08:14] LABS: PHOSPHORUS 3.2 mg/dL (2.5-4.9)
[2021-07-09 08:16] LABS: TOTAL IRON BINDING CAPACITY 429 ug/dL (250-450)
[2021-07-09] MEDS: AMITRIPTYLINE 10MG TABLET PO SCH (09:13)
[2021-07-09] MEDS: CITALOPRAM HYDROBROMIDE 10MG TABLET PO SCH (09:13)
[2021-07-09] MEDS: ARIPIPRAZOLE 5MG TABLET PO SCH (09:14)
[2021-07-09] MEDS: OMEPRAZOLE 20MG CAPSULE EXTENDED RELEASE PO SCH (09:14)
[2021-07-09] MEDS: ENOXAPARIN 40MG/0.4ML SYR SUBCUT SCH (09:14)
[2021-07-09 12:00] VITALS: BP 147/76
[2021-07-09] MEDS ORDERED: POTASSIUM CHLORIDE 20MEQ TABLET SR PO SCH (12:00)
[2021-07-09 15:55] VITALS: BP 139/69
[2021-07-09 20:00] VITALS: BP 120/63
[2021-07-10] VITALS: BP 151/78
[2021-07-10 04:00] VITALS: BP 136/68
[2021-07-10] MEDS: OMEPRAZOLE 20MG CAPSULE EXTENDED RELEASE PO SCH (06:07)
[2021-07-10] MEDS: METOCLOPRAMIDE HCL 10MG/2ML VIAL IV SCH ×2 (06:08→11:16)
[2021-07-10 07:12] LABS: BASOPHILS % 1.3 % (0.0-2.0); EOSINOPHILS % 0.7 % (0.0-5.0); HEMATOCRIT. 27.7 % (36.0-48.0); HEMOGLOBIN. 8.6 g/dL (12.0-16.0); LYMPHOCYTES % 30.4 % (20.0-50.0); MEAN CORPUSCULAR HEMOGLOBIN 21.1 pg (28.0-32.0); MEAN CORPUSCULAR VOLUME 67.7 fL (81.0-99.0); MONOCYTES % 14.2 % (2.0-8.0); NEUTROPHILS % 53.4 % (40.0-76.0); PLATELET 234 x1000/uL (130-400); RED CELL DISTRIBUTION WIDTH 21.8 % (11.6-14.6)
[2021-07-10 07:30] LABS: CHLORIDE 101 mEq/L (98-107)
[2021-07-10 08:00] VITALS: BP 167/82
[2021-07-10] MEDS: ARIPIPRAZOLE 5MG TABLET PO SCH (08:19)
[2021-07-10] MEDS: ENOXAPARIN 40MG/0.4ML SYR SUBCUT SCH (08:19)
[2021-07-10] MEDS: AMITRIPTYLINE 10MG TABLET PO SCH (08:19)
[2021-07-10] MEDS: CITALOPRAM HYDROBROMIDE 10MG TABLET PO SCH (08:19)
[2021-07-10] MEDS ORDERED: ONDA4TAB11 PO (11:27)
[2021-07-10] MEDS ORDERED: POTASSIUM CHLORIDE 20MEQ/PACKET PO SCH (11:30)
[2021-07-10 12:00] VITALS: BP 134/64
== END 2021-07-10 12:55 | disposition home or self-care (01) | DRG 425 ==
LOC: ER 09:03 → MICUSO 19:25 → EDBEDREQTM 19:36 → EDBEDREQSVC 19:36 → EDBEDREQ 19:36 → 8WST 07-08 07:46 → MICUSO 07-08 07:46 → 8WST 07-08 09:51
PROVIDERS: ADMIT Internal Medicine; ATTEND Internal Medicine
DX: E87.6 Hypokalemia (principal); D50.9 Iron deficiency anemia, unspecified; R11.15 Cyclical vomiting syndrome unrelated to migraine; R10.9 Unspecified abdominal pain; M48.07 Spinal stenosis, lumbosacral region; R82.4 Acetonuria; Z79.899 Other long term (current) drug therapy
CPT/HCPCS: 36415; 80048; 80053; 80061; 80305; 80320; 81003; 82550; 82553; 82607; 82728; 82746; 83540; 83550; 83735; 84100; 84443; 84484; 84703; 85025; 93005; 99291; J1650; J2060; J2270; J2405; J2765; J3480; J7030; G0480

== ENCOUNTER 2021-08-17 11:30 | Emergency (ER) | payer MEDICAID, OTHER ==
[~2021-08-17] VITALS: Ht 160 cm; Wt 76.0 kg
[~2021-08-17 11:30] MED LIST changes: -OMEP40CA20 PO; +ONDA4TAB11 PO; -ONDA4TAB5 MT; -ONDA4TAB5 PO
[2021-08-17 12:15] VITALS: BP 132/92
[2021-08-17 13:04] LABS: CHLORIDE 105 mEq/L (98-107)
[2021-08-17] MEDS ORDERED: FAMOTIDINE 20MG/2ML VIAL IV STA (13:12)
[2021-08-17] MEDS ORDERED: METOCLOPRAMIDE HCL 10MG/2ML VIAL IV STA (13:12)
[2021-08-17] MEDS ORDERED: SODIUM CHLORIDE 0.9% 1,000 ML IV ONE (13:15)
[2021-08-17 13:27] LABS: HCG SCREEN NEGATIVE
[2021-08-17 14:05] LABS: BASOPHILS % 0.8 % (0.0-2.0); EOSINOPHILS % 0.1 % (0.0-5.0); HEMOGLOBIN. 8.9 g/dL (12.0-16.0); LYMPHOCYTES % 8.2 % (20.0-50.0); MEAN CORPUSCULAR HEMOGLOBIN 23.2 pg (28.0-32.0); MEAN CORPUSCULAR VOLUME 72.4 fL (81.0-99.0); MEAN PLATELET VOLUME 11.8 fl (7.4-10.4); MONOCYTES % 3.2 % (2.0-8.0); NEUTROPHILS % 87.7 % (40.0-76.0); PLATELET 252 x1000/uL (130-400); RED BLOOD CELL COUNT 3.86 mill/uL (4.2-5.4); RED CELL DISTRIBUTION WIDTH 21.7 % (11.6-14.6)
[2021-08-17] MEDS ORDERED: ONDANSETRON 4MG ODT PO PRN (16:00)
[2021-08-17] MEDS ORDERED: METOCLOPRAMIDE HCL 10MG/2ML VIAL IV NR (18:00)
[2021-08-17] MEDS ORDERED: FAMOTIDINE 20MG/2ML VIAL IV NR (18:00)
[2021-08-17] MEDS ORDERED: MAGNESIUM/ALUMINUM HYDROXIDE/SIMETHICONE 30ML UDC PO ONE (18:00)
[2021-08-17] MEDS ORDERED: MAG-55 MT (18:28)
== END 2021-08-17 19:00 | disposition home or self-care (01) ==
LOC: ER 11:30
DX: R10.13 Epigastric pain (principal); R11.2 Nausea with vomiting, unspecified; F12.10 Cannabis abuse, uncomplicated
CPT/HCPCS: 36415; 80053; 83690; 84703; 85025; 93005; 96361; 96374; 96375; 99284; J2765; J3490; J7030; Q0162

== ENCOUNTER 2021-11-02 15:53 | Emergency (ER) | payer OTHER ==
[~2021-11-02] VITALS: Ht 157.5 cm; Wt 65.0 kg
[~2021-11-02 15:53] MED LIST changes: +MAG-55 MT
[2021-11-02] MEDS ORDERED: METOCLOPRAMIDE HCL 10MG/2ML VIAL IV ONE (17:45)
[2021-11-02] MEDS ORDERED: SODIUM CHLORIDE 0.9% 1,000 ML IV ONE (17:45)
[2021-11-02 22:47] LABS: BASOPHILS % 0.7 % (0.0-2.0); HEMATOCRIT. 32.3 % (36.0-48.0); HEMOGLOBIN. 10.2 g/dL (12.0-16.0); LYMPHOCYTES % 17.4 % (20.0-50.0); MEAN CORPUSCULAR HEMOGLOBIN 20.4 pg (28.0-32.0); MEAN CORPUSCULAR VOLUME 64.8 fL (81.0-99.0); MONOCYTES % 11.7 % (2.0-8.0); NEUTROPHILS % 69.2 % (40.0-76.0); RED BLOOD CELL COUNT 4.98 mill/uL (4.2-5.4); RED CELL DISTRIBUTION WIDTH 24.4 % (11.6-14.6)
[2021-11-02 22:53] LABS: CHLORIDE 98 mEq/L (98-107)
[2021-11-02] MEDS ORDERED: METOCLOPRAMIDE HCL 10MG/2ML VIAL IV NR (23:00)
[2021-11-02] MEDS ORDERED: VISCOUS LIDOCAINE 2% 15 ML UDC MM PRN (23:00)
[2021-11-02 23:04] LABS: B-HCG QUANTITATIVE < 1 mIU/mL (<3)
[2021-11-02 23:11] LABS: MEAN PLATELET VOLUME 10.6 fl (7.4-10.4); PLATELET 201 x1000/uL (130-400); PLATELET ESTIMATE NORMAL
[2021-11-02] MEDS ORDERED: MAGNESIUM/ALUMINUM HYDROXIDE/SIMETHICONE 30ML UDC PO STA (23:20)
[2021-11-02] MEDS ORDERED: FAMOTIDINE 20MG/2ML VIAL IV STA (23:20)
[2021-11-03 00:12] VITALS: BP 132/86
== END 2021-11-03 00:14 | disposition home or self-care (01) ==
LOC: ER 15:53
DX: R11.10 Vomiting, unspecified (principal); F12.10 Cannabis abuse, uncomplicated; D64.9 Anemia, unspecified; Z79.899 Other long term (current) drug therapy
CPT/HCPCS: 36415; 80053; 83690; 84702; 85025; 96361; 96374; 99283; J2765; J7030